=== PATIENT | female | born 1980 | race Caucasian/White ===

== ENCOUNTER 2017-02-06 17:35 | Emergency (ER) | payer OTHER ==
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
--- NOTE | 2017-02-06 18:51 | XR ---
Right elbow HISTORY: Trauma and pain 3 views of the right elbow No comparisons Bone mineralization, joint spaces and alignment are maintained. No joint effusion. IMPRESSION: No fracture or dislocation.
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
[2017-02-06 19:12] VITALS: BP 104/65; PULSE 85; RESP 18; TEMP 100.2
== END 2017-02-06 19:20 | disposition home or self-care (01) ==
LOC: SUPCPDRO 17:35 → EC 17:35
DX: S50.01XA Contusion of right elbow, initial encounter (principal); S80.01XA Contusion of right knee, initial encounter; G40.909 Epilepsy, unspecified, not intractable, without status epilepticus; F32.9 Major depressive disorder, single episode, unspecified; F17.200 Nicotine dependence, unspecified, uncomplicated; Z79.899 Other long term (current) drug therapy; V40.7XXA Person on outside of car injured in collision with pedestrian or animal in traffic accident, initial encounter
CPT/HCPCS: 71010; 72170; 81025; 99284

== ENCOUNTER 2017-02-18 02:00 | Emergency (ER) | payer OTHER ==
[2017-02-18 02:36] VITALS: RESP 18
[2017-02-18] MEDS ORDERED: KETOROLAC 60 MG/2 ML VIAL IM STA (03:06)
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
--- NOTE | 2017-02-18 03:39 | XR ---
EXAM: XR Right Elbow Complete, 3 or More Views CLINICAL HISTORY: Pain TECHNIQUE: Frontal, lateral and oblique views of the right elbow. COMPARISON: X-ray dated 02/06/2017 FINDINGS: Bones/joints: Unremarkable. No acute fracture. No dislocation. Soft tissues: Unremarkable. IMPRESSION: Normal right elbow x-rays.
[2017-02-18 04:03] VITALS: BP 98/60; PULSE 82; TEMP 98.2
== END 2017-02-18 04:03 | disposition home or self-care (01) ==
LOC: EC 02:00
DX: S80.01XA Contusion of right knee, initial encounter (principal); M25.521 Pain in right elbow; M54.5 Low back pain; G40.909 Epilepsy, unspecified, not intractable, without status epilepticus; F32.9 Major depressive disorder, single episode, unspecified; F17.200 Nicotine dependence, unspecified, uncomplicated; Z79.899 Other long term (current) drug therapy; V40.7XXA Person on outside of car injured in collision with pedestrian or animal in traffic accident, initial encounter; Y92.410 Unspecified street and highway as the place of occurrence of the external cause
CPT/HCPCS: 73080; 99284; 96372; J1885

== ENCOUNTER 2017-10-12 14:46 | Outpatient (CLI) | payer OTHER ==
[2017-10-12] MEDS ORDERED: ACETAMINOPHEN IV (For NPO) 1,000 MG in EMPTY BAG 1 BAG IVPB ONE (15:10)
[2017-10-12] MEDS ORDERED: LACTATED RINGERS 1,000 ML IV SCH (15:15)
[2017-10-12 15:36] LABS: Basophils % (A) 0 %; Eosinophils % (A) 1 %; HCT 36.4 % (34.0-46.0); HGB 12.1 gm/dL (11.4-16.0); Lymphocytes # (A) 0.7 k/uL (1.0-4.8); Lymphocytes % (A) 25 %; MCH 27.9 pg (25.0-35.0); MCHC 33.1 g/dL (31.0-37.0); MCV 84.3 fL (80.0-100.0); Mean Platelet Volume 6.7; Monocytes # (A) 0.1 k/uL (0-1.0); Monocytes % (A) 3 %; Neutrophils # (A) 1.7 k/uL (1.3-7.7); Neutrophils % (A) 67 %; Platelet Count 147 k/uL (150-450); RBC 4.32 m/uL (3.80-5.40); RDW 13.2 % (11.5-15.5); WBC 2.6 k/uL (3.8-10.6)
[2017-10-12 15:52] VITALS: BP 110/61; PULSE 84; RESP 17; TEMP 97.6
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
== END 2017-10-12 16:16 | disposition home or self-care (01) ==
LOC: FBPOP 14:46
PROVIDERS: ATTEND Obstetrics & Gynecology Obstetrics
DX: O26.892 Other specified pregnancy related conditions, second trimester (principal); R51 Headache; R50.9 Fever, unspecified; R05 Cough; R06.00 Dyspnea, unspecified; Z3A.20 20 weeks gestation of pregnancy
CPT/HCPCS: 96360; 96366; 85025; 87502; G0463; J0131; 99214

== ENCOUNTER → 2017-12-24 | Outpatient (CLI) | payer OTHER ==
--- NOTE | 2017-12-24 10:25 | US ---
EXAMINATION TYPE: US OB >= 14 wk fetus DATE OF EXAM: 12/24/2017 COMPARISON: None CLINICAL HISTORY: O09.523 ELDERLY MULTIGRAVIDA IN THRID TRIMESTER Growth TECHNIQUE: Transabdominal (TA) GESTATIONAL AGE / DATING Physician Established: (30 weeks/6 days) EDC: 02/26/2018 Dates by Current Scan: (29 weeks/4 days) EDC: 03/07/2018 SURVEY IUP: Single PLACENTA: Posterior PREVIA: No Previa CHANTAL: 13.0 cm Normal CERVICAL LENGTH (transabdominal: norm > 3.0cm): 3.2 cm BIOMETRY PRESENTATION: Vertex LIE: Longitudinal BPD: 7.1 cm 28 weeks / 4 days HC: 26.7 cm 29 weeks / 0 days AC: 25.6 cm 29 weeks / 5 days FL: 5.9 cm 30 weeks / 5 days ESTIMATED WEIGHT IN GRAMS: 1468 grams ESTIMATED WEIGHT IN LBS/OZ: 3 lbs. 4 oz. WEIGHT PERCENTAGE BASED ON ESTABLISHED DATES: 12.3% HC/AC: 1.0 Normal FL/AC: 23.0 Normal HEART RATE: 126 bpm RHYTHM: Normal Single live IUP measuring 29 weeks 4 days IMPRESSION: Single live IUP measuring 29 weeks 4 days
== END | disposition home or self-care (01) ==
LOC: RADUSWWP 09:05
PROVIDERS: ATTEND Obstetrics & Gynecology
DX: O09.523 Supervision of elderly multigravida, third trimester (principal); Z3A.29 29 weeks gestation of pregnancy
CPT/HCPCS: 76805

== ENCOUNTER 2019-02-25 21:40 | Emergency (ER) | payer OTHER ==
--- NOTE | 2019-02-25 23:09 | ED ---
General Adult HPI - General Chief complaint: Skin/Abscess/Foreign Body Stated complaint: Rt wrist inflammation/ Rt eye pain Time Seen by Provider: 02/25/19 22:02 Source: patient Mode of arrival: ambulatory Limitations: no limitations - History of Present Illness Initial comments: Patient is a 38-year-old female presenting to emergency department with eye redness and rash on the right wrist. Patient reports her daughter developed eye redness she days ago which has not resolved and now the patient has developed as well. Patient reports this is a second day of conjunctival redness without any discharge or crusting. Patient denies taking any medication to alleviate the symptoms. Patient also reports mild swelling and erythema extending from the posterior aspect of the hand to the distal one third of the forearm. Patient reports "picking scabs off her skin". Patient reports she developed minor swelling on the posterior right wrist as well as erythema. Patient reports pain with flexion and extension of the wrist. Patient denies any blurry vision, fever, nausea, vomiting, headache, lightheadedness. Patient denies any numbness or tingling. - Related Data Home Medications Medication Instructions Recorded Confirmed Multivitamins, Thera [Multivitamin 1 tab PO DAILY 02/06/17 10/12/17 (formulary)] Sertraline HCl [Zoloft] 150 mg PO DAILY 02/06/17 10/12/17 Buprenorphine HCl/Naloxone HCl 1 tab PO TID 10/12/17 10/12/17 [Zubsolv 5.7-1.4 mg Tablet Sl] Gabapentin 1 tab PO DAILY 10/12/17 10/12/17 Previous Rx's Medication Instructions Recorded Cephalexin [Keflex] 500 mg PO Q6HR #40 cap 02/25/19 Sulfamethox-Tmp 800-160Mg [Bactrim 1 each PO Q12HR #20 tab 02/25/19 Ds] Allergies Allergy/AdvReac Type Severity Reaction Status Date / Time No Known Allergies Allergy Verified 02/25/19 21:46 Review of Systems ROS Statement: Those systems with pertinent positive or pertinent negative responses have been documented in the HPI. ROS Other: All systems not noted in ROS Statement are negative. Past Medical History Past Medical History: Seizure Disorder Additional Past Medical History / Comment(s): Epilepsy, hep C IV abuse history History of Any Multi-Drug Resistant Organisms: None Reported Past Surgical History: Orthopedic Surgery Additional Past Surgical History / Comment(s): [place] teeth, Right wrist surgery Past Psychological History: Depression Smoking Status: Light tobacco smoker Past Alcohol Use History: None Reported Past Drug Use History: Heroin, IV Drug Use General Exam Limitations: no limitations General appearance: alert, in no apparent distress Head exam: Present: atraumatic, normocephalic, normal inspection Eye exam: Present: PERRL, EOMI, conjunctival injection (Right) Pupils: Present: normal accommodation Neck exam: Present: normal inspection Respiratory exam: Present: normal lung sounds bilaterally Cardiovascular Exam: Present: regular rate, normal rhythm, normal heart sounds Right Shoulder Exam: Present: normal inspection, full ROM Upper Arm exam: Present: normal inspection, full ROM Elbow exam: Present: normal inspection, full ROM Forearm Wrist exam: Present: full ROM, tenderness (Tenderness with palpation faction extension.), swelling (Mild posterior aspect of the wrist), erythema, other (Early abscess induration measuring with 1.5 x 1.5 cm, no fluctuation.). Absent: ecchymosis, crepitus, dislocation, tenderness over anatomical snuff box Hand Wrist exam: Present: erythema Vascular: Present: normal capillary refill, radial pulse, ulnar pulse Neurological exam: Present: alert, oriented X3 Psychiatric exam: Present: normal affect, normal mood Skin exam: Present: warm, intact, normal color Course Vital Signs 02/25/19 02/25/19 21:42 21:51 Temperature 98.5 F Pulse Rate 108 H Respiratory 20 Rate Blood Pressure 89/62 118/77 O2 Sat by Pulse 100 Oximetry Medical Decision Making - Medical Decision Making Patient is a 38-year-old female presenting to emergency department with eye red ness and rash in her hand. Based on physical examination and history I suspect the patient has viral conjunctivitis that will resolve on it's own. On her right upper extremity it appears to be cellulitis with early stages of an abscess formation. Going to treat her with a 10 day course of Bactrim and Keflex. Patient advised to follow-up with primary care. Patient advised to return to emergency department if symptoms worsen. Case discussed with physician. Disposition Clinical Impression: Viral conjunctivitis, Cellulitis and abscess of hand Disposition: HOME SELF-CARE Condition: Stable Instructions (If sedation given, give patient instructions): Cellulitis (DC) Additional Instructions: Please take prescribed medication as directed. Please follow with primary care. Please return to emergency department if symptoms worsen. Prescriptions: Sulfamethox-Tmp 800-160Mg [Bactrim Ds] 1 each PO Q12HR #20 tab Cephalexin [Keflex] 500 mg PO Q6HR #40 cap Is patient prescribed a controlled substance at d/c from ED?: No Referrals: Kelley Beach MD [Primary Care Provider] - 1-2 days Time of Disposition: 23:17
[2019-02-25 23:25] VITALS: BP 144/74; PULSE 89; RESP 18; TEMP 97.6
== END 2019-02-25 23:25 | disposition home or self-care (01) ==
LOC: EC 21:40
DX: L03.113 Cellulitis of right upper limb (principal); L02.511 Cutaneous abscess of right hand; B30.9 Viral conjunctivitis, unspecified; G40.909 Epilepsy, unspecified, not intractable, without status epilepticus; F32.9 Major depressive disorder, single episode, unspecified; F19.10 Other psychoactive substance abuse, uncomplicated; F17.200 Nicotine dependence, unspecified, uncomplicated; Z79.899 Other long term (current) drug therapy; Z98.890 Other specified postprocedural states
CPT/HCPCS: 99283

== ENCOUNTER 2019-06-09 20:50 | Emergency (ER) | payer OTHER ==
[2019-06-09 21:37] VITALS: BP 119/66; PULSE 80; RESP 18; TEMP 98.4
[2019-06-09] MEDS ORDERED: SULFAMETHOX-TMP 800-160MG 1 EACH TAB PO STA (22:34)
--- NOTE | 2019-06-09 22:56 | ED ---
General Adult HPI - General Chief complaint: Skin/Abscess/Foreign Body Stated complaint: bumps on arms Time Seen by Provider: 06/09/19 21:32 Source: patient Mode of arrival: ambulatory Limitations: no limitations - History of Present Illness Initial comments: Patient is a 38-year-old female presenting to emergency Department with a chief complaint of infection in the right arm. Patient reports injecting heroin and crack approximately 4 days ago in the region. Patient reports she developed swelling and erythema at the injection sites. Patient also reports multiple non-erythematous "bumps" in bilateral forearms from previous injection sites. Patient reports the lesions are tender with palpation but she denies any nausea vomiting fever or chills. Patient denies taking medication to alleviate the symptoms. Patient denies any alleviating or aggravating factors. - Related Data Home Medications Medication Instructions Recorded Confirmed Multivitamins, Thera [Multivitamin 1 tab PO DAILY 02/06/17 10/12/17 (formulary)] Sertraline HCl [Zoloft] 150 mg PO DAILY 02/06/17 10/12/17 Buprenorphine HCl/Naloxone HCl 1 tab PO TID 10/12/17 10/12/17 [Zubsolv 5.7-1.4 mg Tablet Sl] Gabapentin 1 tab PO DAILY 10/12/17 10/12/17 Previous Rx's Medication Instructions Recorded Cephalexin [Keflex] 500 mg PO Q6HR #40 cap 02/25/19 Sulfamethox-Tmp 800-160Mg [Bactrim 1 each PO Q12HR #20 tab 02/25/19 Ds] Sulfamethox-Tmp 800-160Mg [Bactrim 1 each PO Q12HR #20 tab 06/09/19 Ds] Allergies Allergy/AdvReac Type Severity Reaction Status Date / Time No Known Allergies Allergy Verified 06/09/19 21:37 Review of Systems ROS Statement: Those systems with pertinent positive or pertinent negative responses have been documented in the HPI. ROS Other: All systems not noted in ROS Statement are negative. Past Medical History Past Medical History: Seizure Disorder Additional Past Medical History / Comment(s): Epilepsy, hep C IV abuse history History of Any Multi-Drug Resistant Organisms: None Reported Past Surgical History: Orthopedic Surgery Additional Past Surgical History / Comment(s): [place] teeth, Right wrist surgery Past Psychological History: Depression Smoking Status: Light tobacco smoker Past Alcohol Use History: Occasional Past Drug Use History: Cocaine, Heroin, IV Drug Use, Methamphetamine General Exam Limitations: no limitations General appearance: alert, in no apparent distress Head exam: Present: atraumatic, normocephalic, normal inspection Eye exam: Present: normal appearance, PERRL, EOMI Pupils: Present: normal accommodation ENT exam: Present: normal exam, normal oropharynx, mucous membranes moist, TM's normal bilaterally, normal external ear exam Neck exam: Present: normal inspection, full ROM Respiratory exam: Present: normal lung sounds bilaterally Cardiovascular Exam: Present: regular rate, normal rhythm, normal heart sounds Extremities exam: Present: full ROM, tenderness (Tenderness at the lesion sites.), normal capillary refill, other (+2 ulnar and radial pulses bilaterally). Absent: normal inspection (Multiple not erythematous, not nontender, indurated regions of tissue measuring approximately 1 cm diameter in bilateral forearms. Infection on the posterior aspect of the right forearm measuring approximately 2 cm of induration with no fluctuance with surrounding erythema. Similar lesion in the same region measuring approximately 1 cm diameter of induration with no fluctuance with surrounding erythema.) Back exam: Present: normal inspection, full ROM Neurological exam: Present: alert, oriented X3 Psychiatric exam: Present: normal affect, normal mood Skin exam: Present: warm, intact, normal color Course Vital Signs 06/09/19 21:33 Temperature 98.4 F Pulse Rate 80 Respiratory 18 Rate Blood Pressure 119/66 O2 Sat by Pulse 100 Oximetry Procedures - Incision & Drainage Consent Obtained: verbal consent Site: other (Right forearm) I&D Cleaning Method: Alcohol Wipe Sterile Field Used?: No Needle Aspiration Performed?: Yes (No fluid obtained) Culture Obtained?: No Patient Tolerated Procedure: well, no complications Medical Decision Making - Medical Decision Making Patient is a 38-year-old female presenting to emergency Department with chief complaint of infection on the right hand. Patient does have multiple heart regions on bilateral forearms which I suspect to be due to previous injection sites. They do not appear to be infected or erythematous. Patient reports she is going to get him evaluated via ultrasound. Bedside ultrasound of the to affected region on the right forearm was performed and small pocket of fluid was noted in the small lesion. Attempted needle aspiration was performed but I was unable to obtain any fluid. Patient will be discharged with a 10 day course of Bactrim. Patient also given Bactrim here. Strict return parameters were tho roughly discussed with patient was understanding and agreeable. Patient advised to avoid using illegal substances. Case discussed with physician. Disposition Clinical Impression: Injection site abscess Disposition: HOME SELF-CARE Condition: Stable Instructions (If sedation given, give patient instructions): Abscess (ED) Additional Instructions: Please take prescribed medication as directed. Please follow primary care. Please return to emergency department if symptoms not improved. Prescriptions: Sulfamethox-Tmp 800-160Mg [Bactrim Ds] 1 each PO Q12HR #20 tab Is patient prescribed a controlled substance at d/c from ED?: No Referrals: Brianne Luis MD [Primary Care Provider] - 1-2 days Time of Disposition: 22:56
== END 2019-06-09 23:03 | disposition home or self-care (01) ==
LOC: EC 20:50
DX: L02.413 Cutaneous abscess of right upper limb (principal); F32.9 Major depressive disorder, single episode, unspecified; G40.909 Epilepsy, unspecified, not intractable, without status epilepticus; F17.210 Nicotine dependence, cigarettes, uncomplicated; Z79.899 Other long term (current) drug therapy; Z87.898 Personal history of other specified conditions
CPT/HCPCS: 10160; 99283

== ENCOUNTER 2019-07-25 19:09 | Emergency (ER) | payer OTHER ==
[2019-07-25 19:42] VITALS: BP 118/83; PULSE 81; RESP 20; TEMP 98.6
--- NOTE | 2019-07-25 22:02 | XR ---
EXAMINATION TYPE: XR forearm LT DATE OF EXAM: 07/25/2019 COMPARISON: None HISTORY: Needle stuck in arm TECHNIQUE: 2 view left forearm FINDINGS: No acute fractures or dislocations are evident There is a radiopaque foreign body within the soft tissues of the proximal dorsal forearm IMPRESSION: 1. Radiopaque foreign body to correspond to a needle within the proximal soft tissues forearm.
--- NOTE | 2019-07-25 22:23 | ED ---
Skin/Abscess/FB HPI - General Chief complaint: Skin/Abscess/Foreign Body Stated complaint: needle stuck in arm Time Seen by Provider: 07/25/19 21:31 Source: patient Mode of arrival: ambulatory Limitations: no limitations - History of Present Illness Initial comments: 38-year-old female patient presents to the emergency department today for evaluation of possible foreign body to the left forearm. Patient's issues injecting methamphetamine when she accidentally broke the needle off inside. Patient states that she has attempted to get the medial elbow was unable to do so. Patient states she feels a poking sensation over she says her arm down on a table. She denies fever or chills per denies drainage from the area. Denies any other injuries or concerns. - Related Data Home Medications Medication Instructions Recorded Confirmed Multivitamins, Thera [Multivitamin 1 tab PO DAILY 02/06/17 10/12/17 (formulary)] Sertraline HCl [Zoloft] 150 mg PO DAILY 02/06/17 10/12/17 Buprenorphine HCl/Naloxone HCl 1 tab PO TID 10/12/17 10/12/17 [Zubsolv 5.7-1.4 mg Tablet Sl] Gabapentin 1 tab PO DAILY 10/12/17 10/12/17 Previous Rx's Medication Instructions Recorded Cephalexin [Keflex] 500 mg PO Q6HR #40 cap 02/25/19 Sulfamethox-Tmp 800-160Mg [Bactrim 1 each PO Q12HR #20 tab 02/25/19 Ds] Sulfamethox-Tmp 800-160Mg [Bactrim 1 each PO Q12HR #20 tab 06/09/19 Ds] Cephalexin [Keflex] 500 mg PO Q6H #28 cap 07/25/19 Allergies Allergy/AdvReac Type Severity Reaction Status Date / Time No Known Allergies Allergy Verified 07/25/19 19:42 Review of Systems ROS Statement: Those systems with pertinent positive or pertinent negative responses have been documented in the HPI. ROS Other: All systems not noted in ROS Statement are negative. Past Medical History Past Medical History: Seizure Disorder Additional Past Medical History / Comment(s): Epilepsy, hep C IV abuse history History of Any Multi-Drug Resistant Organisms: None Reported Past Surgical History: Orthopedic Surgery Additional Past Surgical History / Comment(s): [place] teeth, Right wrist surgery Past Psychological History: Depression Smoking Status: Light tobacco smoker Past Alcohol Use History: Occasional Past Drug Use History: Cocaine, Heroin, IV Drug Use, Marijuana, Methamphetamine General Exam Limitations: no limitations General appearance: alert, in no apparent distress, other (This a well- developed, well-nourished adult female patient in no acute distress. Vital signs upon presentation are temperature 98.6F, pulse 81, respirations 20, blood pressure 118/83, pulse ox 98% on room air.) Respiratory exam: Present: normal lung sounds bilaterally. Absent: respiratory distress, wheezes, rales, rhonchi, stridor Cardiovascular Exam: Present: regular rate, normal rhythm, normal heart sounds. Absent: systolic murmur, diastolic murmur, rubs, gallop, clicks Extremities exam: Present: full ROM, normal capillary refill, other (There is induration and puncture noted to the left dorsal forearm, no evidence for protruding foreign body.). Absent: tenderness, pedal edema, joint swelling, calf tenderness Neurological exam: Present: alert, oriented X3, CN II-XII intact Psychiatric exam: Present: normal affect, normal mood Skin exam: Present: warm, dry, intact, normal color. Absent: rash Course Vital Signs 07/25/19 19:37 Temperature 98.6 F Pulse Rate 81 Respiratory 20 Rate Blood Pressure 118/83 O2 Sat by Pulse 98 Oximetry Medical Decision Making - Medical Decision Making 38-year-old female patient presented to the emergency department today for evaluation of a foreign body to the left forearm. Patient admits to injecting methamphetamine and breaking off a needle. X-ray did reveal evidence for a small radiopaque foreign body corresponding to a needle in the forearm. Did discuss removal with the patient, we will leave needle in place at this time and give prescription for antibiotics. She is instructed follow up with her primary care physician for further evaluation. Return parameters discussed in detail. She verbalizes understanding and agrees with this plan. - Radiology Data Radiology results: report reviewed, image reviewed Two-view of the left forearm was obtained. Report was reviewed in its entirety. Impression by Dr. Driver shows radiopaque foreign body to correspond to a needle within the proximal soft tissues forearm. Disposition Clinical Impression: Foreign body in left forearm Disposition: HOME SELF-CARE Condition: Good Instructions (If sedation given, give patient instructions): Soft Tissue Foreign Body (ED) Additional Instructions: Follow up with the primary care physician for any new, worsening, or concerning symptoms. Prescriptions: Cephalexin [Keflex] 500 mg PO Q6H #28 cap Is patient prescribed a controlled substance at d/c from ED?: No Referrals: Nonstaff,Physician [Primary Care Provider] - 1-2 days Time of Disposition: 22:23
== END 2019-07-25 22:41 | disposition home or self-care (01) ==
LOC: EC 19:09
DX: S50.852A Superficial foreign body of left forearm, initial encounter (principal); G40.909 Epilepsy, unspecified, not intractable, without status epilepticus; F32.9 Major depressive disorder, single episode, unspecified; F15.11 Other stimulant abuse, in remission; F17.200 Nicotine dependence, unspecified, uncomplicated; Z79.899 Other long term (current) drug therapy; W45.8XXA Other foreign body or object entering through skin, initial encounter
CPT/HCPCS: 99283